=== PATIENT | female | born 1970 | race African-American/Black ===

== ENCOUNTER 2024-02-28 15:53 | Outpatient (CLI) | payer OTHER, SELFPAY ==
--- NOTE | ~2024-02-28 | MM_ITS ---
EXAMINATION: MM screening ofelia BI w vincent HISTORY: Screening TECHNIQUE: Craniocaudal and mediolateral oblique 3-D tomosynthesis images were obtained and synthetic 2-D images were generated. CAD analysis was submitted and interpreted. COMPARISON: No prior mammogram is available for comparison at this institution. BREAST PARENCHYMAL COMPOSITION: Not Dense. The breasts are almost entirely fatty. FINDINGS: There is no evidence of suspicious mass, calcification, or architectural distortion to sugg est malignancy in either breast. There has been no suspicious interval change. IMPRESSION: 1. No mammographic evidence of malignancy. 2. Recommend routine screening mammography in one year. BI-RADS Category 1: Negative Reviewed, dictated and finalized at location B.
== END 2024-02-28 15:54 | disposition home or self-care (01) ==
PROVIDERS: PCP Physician Assistant; Visit Provider Physician Assistant
DX: Z12.31 Encounter for screening mammogram for malignant neoplasm of breast (principal)
CPT/HCPCS: 77063; 77067

== ENCOUNTER 2024-08-15 22:32 | Emergency (ER) | payer BC, SELFPAY ==
--- NOTE | ~2024-08-15 | XR_ITS ---
EXAMINATION: XR chest 1V portable 08/15/2024 23:00 INDICATION: Heart palpitations PROCEDURE: AP portable chest COMPARISON: No prior studies for comparison. FINDINGS: The lungs are clear. The cardiomediastinal silhouette is within normal limits. There are no pleural effusions. There is no pneumothorax suspected. IMPRESSION: 1: NO ACUTE CARDIOPULMONARY DISEASE. Reviewed, dictated and finalized at location A. FF EXPERT
[2024-08-15 22:33] VITALS: BP 192/111; PULSE 117; RESP 20; TEMP 36.8; O2SAT 100
--- NOTE | 2024-08-15 22:38 | ECG_ITS ---
Test Date: 2024-08-15 22:42:58 Measurements Intervals [place] Rate: 102 P: 47 TX: 167 QRS: -26 QRSD: 95 T: 4 QT: 347 QTc: 453 Interpretive Statements SINUS TACHYCARDIA POSSIBLE LEFT ATRIAL ENLARGEMENT [-0.1mV P WAVE IN V1/V2] POSSIBLE LEFT VENTRICULAR HYPERTROPHY [VOLTAGE CRITERIA PLUS LAE OR QRS WIDENING] POSSIBLE ANTERIOR MYOCARDIAL INFARCTION , PROBABLY OLD [30 ms Q WAVE IN V3/V4, OR R < 0.2 mV IN V4] No previous ECG available for comparison Electronically Signed On 08-16-2024 09:21:13 SOIL SCIENCE PROFESSOR by Farhat Valera M.D.
[2024-08-15 23:13] VITALS: BP 182/100; PULSE 96; RESP 16; O2SAT 100
[2024-08-15 23:22] LABS: Basophils Percent Auto 0.6 % (0.2-1.2); Eosinophils Absolute Auto 0.2 K/mm3 (0-0.3); Eosinophils Percent Auto 2.5 % (0-4.4); Hematocrit 42.6 % (37.0-47.0); Hemoglobin 14.2 g/dL (12.0-15.0); Immature Granulocyte Absolute 0.02 K/mm3 (0.00-0.031); Immature Granulocyte Percent A 0.3 % (0-0.5); Lymphocytes Percent Auto 36.7 % (18.3-44.2); Mean Corpuscular HGB Conc 33.3 g/dl (32-36); Mean Corpuscular Hemoglobin 28.8 pg (26-34); Mean Corpuscular Volume 86.4 fl (80-100); Mean Platelet Volume 9.7 fl (7.4-10.4); Monocytes Absolute Auto 0.6 K/mm3 (0.1-0.6); Monocytes Percent Auto 8.1 % (2.6-8.5); Neutrophils Absolute Auto 3.5 K/mm3 (1.3-6.7); Neutrophils Percent Auto 51.8 % (45.5-73.1); Platelet Count Result 255 k/mm3 (150-375); Red Blood Count 4.93 M/mm3 (4.2-5.4); Red Cell Distribution Width 13.1 % (11.5-14.5); White Blood Count 6.8 K/mm3 (4.5-10.0)
[2024-08-15 23:39] LABS: Prothrombin Time 13.5 Seconds (11.1-14.7)
[2024-08-15 23:40] LABS: Partial Thromboplastin Time 29.7 Seconds (22.3-36.8)
[2024-08-16] LABS: Alanine Aminotransferase 21 U/L (6-35); Albumin Level 3.7 g/dL (3.5-5.1); Alkaline Phosphatase 59 U/L (38-126); Anion Gap 6 mmol/L (4-12); Aspartate Amino Transferase 19 U/L (14-36); Bilirubin,Total 0.6 mg/dL (0.2-1.3); Blood Urea Nitrogen 7 mg/dL (7-17); Calcium 8.6 mg/dL (8.4-10.2); Carbon Dioxide 25 mmol/L (22-30); Chloride 104 mmol/L (98-107); Estimated CRCL calculation 130 ml/min; Estimated Glomerular Filt Rate > 60; Glucose 271 mg/dL (65-110); Lipase 59 U/L (23-300); Potassium 3.7 mmol/L (3.4-5.0); Sodium 135 mmol/L (137-145)
[2024-08-16 00:05] VITALS: BP 152/97; PULSE 91; RESP 18; O2SAT 100
[2024-08-16 00:11] LABS: Troponin I < 0.012 ng/mL (0.000-0.034)
[2024-08-16 02:22] VITALS: BP 164/96; PULSE 96; RESP 20; O2SAT 98
[2024-08-16 02:36] LABS: Troponin I < 0.012 ng/mL (0.000-0.034)
--- NOTE | 2024-08-16 02:53 | ED.GENADULT ---
HPI - General Adult General Chief complaint: Arrhythmia/Palpitations Stated complaint: palpitations Time Seen by Provider: 08/15/24 22:54 History of Present Illness HPI narrative: This is a 54-year-old female presenting ED with chief complaint of palpitations. Patient says that she is laying down when also start heart started racing. Palpitations lasted for about 10 minutes before resolving without intervention. She then came to the hospital for evaluation. At this time she is asymptomatic and is denying chest pain difficulty breathing abdominal pain nausea vomiting diarrhea. She has had some URI symptoms over the last several days. Related Data Allergies Allergy/AdvReac Type Severity Reaction Status Date / Time No Known Allergies Allergy Verified 08/15/24 23:12 Exam Narrative: APPEARANCE: No apparent distress. Head: atraumatic. EYES: EOMI, NOSE: Atraumatic NECK: Trachea midline RESPIRATORY: No increased rate of breathing CTAB CARDIOVASCULAR: RRR, no peripheral edema ABDOMINAL: Non-distended soft nontender MUSCULOSKELETAl: No obvious deformities NEURO: Alert. Moving 4/4 extremities SKIN:: Warm, dry. Normal color PSYCHIATRIC: Normal affect Course Vital Signs Vital signs: Vital Signs Temperature 98.2 F 08/15/24 22:33 Pulse Rate 117 H 08/15/24 22:33 Respiratory Rate 20 08/15/24 22:33 Blood Pressure 192/111 H 08/15/24 22:33 Pulse Oximetry 100 08/15/24 22:33 Oxygen Delivery Room Air 08/15/24 22:33 Temperature 98.2 F 08/15/24 22:33 Pulse Rate 96 08/16/24 02:22 Respiratory Rate 20 08/16/24 02:22 Blood Pressure 164/96 H 08/16/24 02:22 Pulse Oximetry 98 08/16/24 02:22 Oxygen Delivery Room Air 08/15/24 22:33 Medical Decision Making [facility] [place] Narrative Medical decision making narrative: -Course: 54-year-old female presenting after a 10 minutes episode palpitations. Workup here was unremarkable. Patient has been asymptomatic and is resting. EKG without concerning findings. She was monitored quality facilitator several hours with no recurrence of her symptoms. She will be discharged to follow-up with primary care physician. -DDX includes but is not limited to: Heart block, AFib, SVT, anxiety, dehydration -Independent interpretation of studies: Labs reviewed Independent EKG interpretation: Rhythm [sinus], Rate [102], [place] -[normal], [place] -[normal], QRS [narrow], QTC [normal], T waves -[negative for concerning inversions], ST Segments - [Negative for concerning elevations] Final interpretations: Sinus tach -Shared decision making / Disposition:discharged. Vital Signs Vital Signs: Vital Signs Temperature 98.2 F 08/15/24 22:33 Pulse Rate 117 H 08/15/24 22:33 Respiratory Rate 20 08/15/24 22:33 Blood Pressure 192/111 H 08/15/24 22:33 Pulse Oximetry 100 08/15/24 22:33 Oxygen Delivery Room Air 08/15/24 22:33 Temperature 98.2 F 08/15/24 22:33 Pulse Rate 96 08/16/24 02:22 Respiratory Rate 20 08/16/24 02:22 Blood Pressure 164/96 H 08/16/24 02:22 Pulse Oximetry 98 08/16/24 02:22 Oxygen Delivery Room Air 08/15/24 22:33 Lab Data 08/15/24 23:15 08/15/24 23:36 Labs: Lab Results 08/15/24 08/15/24 08/16/24 Range/Units 23:15 23:36 02:09 WBC 6.8 (4.5-10.0) K/mm3 RBC 4.93 (4.2-5.4) M/mm3 Hgb 14.2 (12.0-15.0) g/dL Hct 42.6 (37.0-47.0) % MCV 86.4 (80-100) fl MCH 28.8 (26-34) pg MCHC 33.3 (32-36) g/dl RDW 13.1 (11.5-14.5) % Plt Count 255 (150-375) k/mm3 MPV 9.7 (7.4-10.4) fl Immature Gran % (Auto) 0.3 (0-0.5) % Neut % (Auto) 51.8 (45.5-73.1) % Lymph % (Auto) 36.7 (18.3-44.2) % [place] % (Auto) 8.1 (2.6-8.5) % Eos % (Auto) 2.5 (0-4.4) % Baso % (Auto) 0.6 (0.2-1.2) % Lymph # (Auto) 2.50 (0.9-3.2) K/mm3 [place] # (Auto) 0.6 (0.1-0.6) K/mm3 Eos # (Auto) 0.2 (0-0.3) K/mm3 Baso # (Auto) 0.0 (0.0-0.1) K/mm3 Abs Immat Gran (auto) 0.02 (0.00-0.031) K/mm3 Absolute Neuts (auto) 3.5 (1.3-6.7) K/mm3 Absolute Nucleated RBC 0.000 (0.0-0.012) K/mm3 Nucleated RBC % 0.0 (0.0-0.2) % PT 13.5 (11.1-14.7) Seconds INR 1.0 APTT 29.7 (22.3-36.8) Seconds Sodium 135 L (137-145) mmol/L Potassium 3.7 (3.4-5.0) mmol/L Chloride 104 (98-107) mmol/L Carbon Dioxide 25 (22-30) mmol/L Anion Gap 6 (4-12) mmol/L BUN 7 (7-17) mg/dL Creatinine 0.54 L (0.7-1.0) mg/dL Estim Creat Clear Calc 130 ml/min Estimated GFR > 60 (59 - ) Glucose 271 H (65-110) mg/dL Calcium 8.6 (8.4-10.2) mg/dL Total Bilirubin 0.6 (0.2-1.3) mg/dL AST 19 (14-36) U/L ALT 21 (6-35) U/L Alkaline Phosphatase 59 (38-126) U/L Troponin I < 0.012 < 0.012 (0.000-0.034) ng/mL Total Protein 7.0 (6.3-8.2) g/dL Albumin 3.7 (3.5-5.1) g/dL Lipase 59 (23-300) U/L Discharge Plan Discharge Clinical Impression: Palpitations Patient Disposition: Home, Self-Care Condition: Stable Instructions: Antibiotic Form, Heart Palpitations (DC) Additional Instructions: He was seen emergency room for palpitations. Workup here was reassuring. Your symptoms did not recur while in the ED. please follow-up with your primary care physician for further management. Return to ED if you develop any new or worsening symptoms. Patient Language: Croatian Prescriptions: New amlodipine 5 mg tablet 5 mg PO DAILY Qty: 30 0RF Follow-up/Referrals: Jaycee,OTF Ma [Primary Care Provider] -
== END 2024-08-16 03:20 | disposition home or self-care (01) ==
PROVIDERS: Emergency Provider Emergency Medicine; PCP Physician Assistant
DX: R00.2 Palpitations (principal); R00.0 Tachycardia, unspecified; R94.31 Abnormal electrocardiogram [ECG] [EKG]
CPT/HCPCS: 36415; 71045; 80053; 83690; 84484; 85025; 85610; 85730; 93005; 99284

== ENCOUNTER 2025-01-01 18:52 | Emergency (ER) | payer BC, SELFPAY ==
--- OUTSIDE RECORDS SUMMARY | 2025-01-01 18:54 | XMS_ITS | Data Portability ---
Author Organization [place] - [facility] OFFICE Address [address] [place] [address] Care Team Providers Care Failure Analysis Technician Name Role Phone GARLAND FIGUEROA Primary Care Provider [phone] GARLAND FIGUEROA Referring Provider Assessment Encounter Date Assessment Date Assessment LastModified by Organization Details LastModified Time 03/29/2018 03/29/2018 Discussed with patient findings, diagnosis, and prognosis. Discussed evaluation and treatment options including risks and benefits with patient, and patient expressed understanding. The following interventions were recommended: heart healthy low-fat, low-sodium diet, avoid strenuous exercise pending completion of cardiovascular evaluation, maintain appropriate weight, continue current medications, and medical follow-up as noted. [email or web address] Not available 03/29/2018 15:37:45 Plan of Treatment Reminders Order Date Submit Date Provider Last Modified By Organization Details Last Modified Time Details Appointments None recorded. Lab None recorded. Referral None recorded. Procedures None recorded. Surgeries None recorded. Imaging electrocard iogram 2017 018 [email or web address] Not available 9 17:15:45 Medication Orders None recorded. Patient TargetsNo targets recorded. Patient Instructions Encounter Date Encounter Id Patient Instructions Last Modified By Organization Details Last Modified Time 03/29/2018 [id number] When You Want to Lose Weight: Care Instructions [email or web address] Not available 03/29/2018 15:39:20 palpitations: care instructions [email or web address] Not available 03/29/2018 15:39:20 high blood pressure: care instructions [email or web address] Not available 03/29/2018 15:39:20 learning about high blood pressure [email or web address] Not available 03/29/2018 15:39:20 This document wa s scribed by Riddhi [email or web address] Not available 03/29/2018 15:17:41 Reason for Referral None Reported. Results Created Date Observation Date Name Description Value Unit Range Abnormal Flag Note LastModifiedBy Organization Detail LastModifiedTime 03/29/20 18 03/29/2018 elect rocar diogr am Result low voltag e, chest leads. Jacob septal CO, age undete rmined Not Available Russ Chan MD [address], [place], [address], 03/29/2018 14:43:58 03/29/20 18 03/29/2018 elect rocar diogr am No observ ation record ed. [email or web address] Not Available 2017 17:33:34 05/21/20 18 05/17/2018 , [facility]io gram No observ ation record ed. esto [facility] [address], [place], [address], 05/28/2018 14:43:53 Result Notes None recorded. Problems Name Problem SNOMED Code Status Onset Date Resolution Date Notes Provider Name and Address Organization Details Recorded Time Hypertensiv e disorder 53106755 Completed 201703/29/2018 Riddhi Alarcon [facility] [place], [place] - [facility] 8 15:16:31 Dyspnea on exertion 19722176 Active 2017 Isabel Dubois [facility] [place], [place] - [facility] 8 14:40:01 Palpitation s 10725893 Active 2017 Isabel Dubois [facility] [place], [place] - [facility] 8 14:40:07 Essential hypertensio n 50751903 Active 2017 Riddhi Alarcon [place], [place] - [facility] 8 15:16:27 Gastroesoph ageal reflux disease 500345105 Active 2017 Riddhi Alarcon [place], [place] - [facility] 8 15:17:49 Obesity 232548024 Active 2017 Kenrick Galeas [facility] [place], [place] - [facility] 8 15:32:04 Problem Notes None recorded. Medical Equipment None Reported. Allergies No known drug allergies Medications Name Sig Start Date Stop Date Status Note LastModified by Organization Details LastModified Time amlodipine 5 mg tablet 1 TAB QD active Not Available Not Available No t Available aspirin 81 mg tablet,delaye d release 1 tab qd active Not Available Not Available No t Available bisoprolol fumarate 5 mg tablet 1 TAB QD active Not Available Not Available No t Available ranitidine 150 mg tablet 1 tab qd active Not Available Not Available No t Available lisinopril 10 mg tablet 1 TAB QD active Not Available Not Available No t Available iron 1 tab qd active Not Available Not Available No t Available Vitals Date Recorded Body weight Body mass index (BMI) Body height Heart rate Oxygen saturation Oxygen saturation in Arterial blood by Pulse oximetry Systolic blood pressure Diastolic blood pressure Provider Name and Address Organization Details Last Updated DateTime 8 944199. 32 g 42.4 kg/m2 162.56 cm 57 /min 99 % 99 % 128 mm[Hg] 86 mm[Hg] Isabel Dubois [facility] 8 14:50:48 Social History Question Answer Notes LastModified by [employer] Details LastModified Time Tobacco Smoking Status Never Smoker Not Available [facility] 06/03/2020 03:30:42 What Is Your Level Of Caffeine Consumption? Occasional [id number] Information not available 06/03/2020 How Much Tobacco Do You Chew? None [id number] Information not available 06/03/2020 What Type Of Diet Are You Following? REGULAR [id number] Information not available 06/03/2020 Which Illicit Or Recreational Drugs Have You Used? No [id number] Information not available 06/03/2020 Live Alone Or With Others? With Others [email or web address] Information not available 03/29/2018 Marital Status Informatio n not available 03/29/2018 What Was The Date Of Your Most Recent Tobacco Screening? 03/29/2018 [id number] Information not available 06/03/2020 How Many Children Do You Have? 3 [id number] Information not available 06/03/2020 How Much Tobacco Do You Smoke? No [id number] Information not available 06/03/2020 General Stress Level Medium [email or web address] Information not available 03/29/2018 Sex: Unknown Functional Status Question Answer Note LastModified by [employer] Details LastModified Time What is your level of alcohol consumption? 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 Occasional [id number] Information not available 06/03/2020 Mental Status None recorded. Family History Relationship Description Onset Age of this Age Resolved Age Notes LastModified by Organization Details LastModified Time Father Diabetes mellitus [email or web address] Not available 2017 14:42:01 Mother Hypertensive disorder [email or web address] Not available 2017 14:42:08 Medical History Condition Response Hypertension Y Gynecological HistoryNo gynecological history recorded. Obstetrics History GPAL:G 0 P 0 0 0 0 Past Encounters Encounter ID Performer Location Encounter Start Date Encounter Closed Date Diagnosis/Indication Diagnosis SNOMED-CT Code Diagnosis ICD10 Code Diagnosis Note [id number] Kenrick Galeas MD [facility] OFFICE [address] [place] [address] 03/29/2018 14:15:07 08/07/2018 17:15:44 Dyspnea on exertion 30010204 R06.09 Has exertional dyspnea which can be an anginal equivalent . Has abnormal EKG 03/29/18: NSR, possible anterior myocardial infarction age-indete rminate. Obtain echo to evaluate for structural /functiona l disease. Treadmill Myoview Stress test, has high [place] Risk score. Has Known CAD, or CAD risk equivalent . To look for any ischemia. Will obtain FLP before next visit. Palpitations 70200761 R0 0.2 Fluttering palpitatio ns, once per month before menstrual cycle. Will order CMP, Mg, TSH before next visit. Essential hypertension 14360885 I10 Patient's blood pressure is somewhat well-contr olled on present medical therapy. Patient is tolerating , without difficulty , the current medication s. I have not made changes to the current regimen. Patient is advised to maintain a blood pressure diary. Patient was advised to eat a low-sodium diet (2 grams sodium or less daily). BP monitor - XL. Obesity 629878513 E66.9 20 lb. weight loss recommende d over the next 2 months. Health Concerns Section Related Observation LastModified by Organization Detai ls LastModified Time None Recorded Concern Status LastModified by Organization Details LastModified Time None Recorded Advance Directives Directive None Recorded Payers Insurance Date Sequence Insurance Name Policy Number Policy Casanova Covered Member ID Casanova Member ID Guarantor Name 06/03/2018 1 [facility] [id number] Adele Guevara [id number] Adele Guevara Notes Date Note Type Note Provider Name and Address Organization Details Recorded Time 03/29/2018 text/html 03/29/18 CC: Hypertension 48 year-old woman with history of hypertension, GERD, obesity, presents for cardiac consultation with a chief complaint of hypertension. She was diagnosed with HTN while 19 years ago and has been on medications since then. She does not check her BP at home. She does not have a BP cuff. She reports rare fluttering of her chest before she starts her menstrual period occuring oncer per month, episodes last a few seconds and resolve on its own. Denies any chest pain, shortness of breath or lightheadedness associated. She has a family history of DM and HTN with her parents. Denies history of CO in the family. She is currently still having her menstrual cycle. No known history of coronary artery disease. No history of previous myocardial infarction. No history of heart failure. No known valvular heart disease. No known arrhythmia. Patient reports feeling well overall. Patient is active, but is not exercising regularly. At her job, she walks a lot and on her off days she tries to go up and down her stairs a few times or other exercises. No chest pain. No arm pain. No neck pain. No nausea and vomiting. No diaphoresis. No shortness of breath at rest. Dyspnea on exertion reported while going up stairs.# No dyspnea on exertion. Dyspnea on exertion reported. No fatigue.No orthopnea. No PND. No leg swelling. Palpitation reported rare fluttering.# No palpitation. Palpitat ion reported. No dizziness. No syncope . No pre-syncope. No claudication. No major bleeding events. No side effects from medications. Complete ROS negative except as stated in the HPI and ROS. She snores. Denies morning headaches or daytime somnolence. Results from this visit, or from the past: GUILLERMO [facility] - [facility] 03/29/2018 15:39:42 OBGyn Episode No OBEpisode recorded.
[2025-01-01 19:00] VITALS: BP 179/88; PULSE 100; RESP 18; TEMP 36.6; O2SAT 100
--- NOTE | 2025-01-01 20:00 | PC.NURSE ---
Pt ambulates to bathroom to provide urine sample and is unsuccessful. Will try again in approx 15 minutes.
--- NOTE | 2025-01-01 20:10 | ED_ITS ---
HPI - Female Genitourinary General Chief complaint: Vaginal Bleeding Stated complaint: vaginal bleeding and abd cramps Time Seen by Provider: 01/01/25 19:29 Source: patient Mode of arrival: ambulatory Limitations: no limitations History of Present Illness HPI Narrative: Patient presents with vaginal bleeding/spotting she noticed on the toilet paper while wiping 4 days ago. Associated with low abdominal pain/cramps. Has not taken any medications, describes it like a period cramp. History of heavy periods but LMP was 3 years ago. Noticed blood in urine but thought they were related, not strictly hematuria originally. No urgency/frequency/dysuria. Denies hiastory of UTI or pyelo. History of kidney stone when 20+ years ago. Not on anticoagulation. Has an appointment to see an obGyn 01/21/25. Has a PCP. No fevers/chills, weight loss. No hair distribution changes. No vision changes (no blurred/double vision). Does feel hot constantly. No lower extremity edema. No other mucoscal bleeding. No trauma/foreign body insertion. Sexually active with 1 male partner. No history of STIs. No recent instrumentation. Related Data Allergies Allergy/AdvReac Type Severity Reaction Status Date / Time No Known Allergies Allergy Verified 01/01/25 19:02 [facility] Past Medical History Medical History (Updated 01/07/25 @ 04:56 by Alley Dsouza MD) H/O calculus of kidney during approx 1999 Post-menopausal History of heavy periods Exam 2 Narrative: GENERAL: Well-appearing, well-nourished, and in no acute distress. HEAD: Normocephalic, atraumatic. EYES: Non injected, non icteric ENT: Nares clear, no rhinorrhea or epistaxis. Gross auditory acuity intact. NECK: Supple. No meningismus. CHEST: Speaking in full sentences. No respiratory distress. HEART: Regular rate and rhythm. . ABDOMEN: Soft, nondistended. No rigidity or guarding. Not peritoneal EXTREMITIES: Normal range of motion. No lower extremity edema. SKIN: Warm, dry, no rash. NEURO: No focal deficits. Alert and oriented. Answering questions. Following commands. Normal speech without aphasia or dysarthria. PSYCH: Normal mood and affect. : Pelvic exam performed with nurse Saini present as top printing press operator/hardware sales assistant. Normal external female genitalia. No lesions/rashes or masses appreciated. Normal vaginal canal. Scant leos discharge in posterior fornix/overlying cervix. No luba blood. Course Vital Signs Vital signs: Vital Signs Temperature 97.9 F 01/01/25 19:00 Pulse Rate 100 01/01/25 19:00 Respiratory Rate 18 01/01/25 19:00 Blood Pressure 179/88 H 01/01/25 19:00 Pulse Oximetry 100 01/01/25 19:00 Oxygen Delivery Room Air 01/01/25 19:00 Temperature 97.9 F 01/01/25 19:00 Pulse Rate 90 01/01/25 23:30 Respiratory Rate 15 01/01/25 23:30 Blood Pressure 152/84 H 01/01/25 23:30 Pulse Oximetry 100 01/01/25 23:30 Oxygen Delivery Room Air 01/01/25 19:00 MDM - Female Genitourinary MDM Narrative Medical decision making narrative: This is a 54 year old post-menopausal female who presents with vaginal bleeding most likely of non emergent etiology. In the ED she is afebrile with VS notable for hypertension. The patient had a benign pelvic exam, patient's bleeding thought to be secondary to fibroids or other non emergent cause of abnormal uterine bleeding. Unlikely hemorrhagic cystitis: No dysuria, UA doesn't appear infected Unlikely PCOS, pituitary dysregulation, hypothyroidism: No changes in hair distribution, weight change, no visual changes, questionable thermoregulatory changes, no new unexplained edema. Normal TSH Unlikely coagulopathy (vWD, ITP): No anticoagulation medication, platelets normal, no other mucosal bleeding. Unlikely traumatic vaginal bleeding: no history of instrumentation, hard sex, or abuse, and pelvic exam shows no signs of trauma, no foreign body visualized. Unlikely PID: monogamous with sexual partner also believed to be monogamous, no history of STDs, no pain on pelvic exam. STI testing negative. Unlikely other infectious etiology: nonseptic appearance, no recent history of instrumentation. Otherwise well appearing without appreciable blood in vaginal vault. Reasonable to defer CT imaging at this time. She has mild hyperglycemia without anion gap acidosis. Mild hypokalemia. Oral repletion ordered. Notably, patient is not anemic. Plan discharge home with return precautions, advised to follow up with ObGyn who may recommend US in the outpatient setting. Discharged in stable condition with Rx for APAP. Lab Data Attestation: I reviewed the patient's lab results. 01/01/25 21:09 01/01/25 21:09 Labs: Lab Results 01/01/25 Range/Units 21:09 WBC 8.5 (4.5-10.0) K/mm3 RBC 5.06 (4.2-5.4) M/mm3 Hgb 14.5 (12.0-15.0) g/dL Hct 43.9 (37.0-47.0) % MCV 86.8 (80-100) fl MCH 28.7 (26-34) pg MCHC 33.0 (32-36) g/dl RDW 13.3 (11.5-14.5) % Plt Count 282 (150-375) k/mm3 MPV 9.6 (7.4-10.4) fl Immature Gran % (Auto) 0.5 (0-0.5) % Neut % (Auto) 59.0 (45.5-73.1) % Lymph % (Auto) 30.4 (18.3-44.2) % Curry % (Auto) 8.1 (2.6-8.5) % Eos % (Auto) 1.5 (0-4.4) % Baso % (Auto) 0.5 (0.2-1.2) % Lymph # (Auto) 2.58 (0.9-3.2) K/mm3 Curry # (Auto) 0.7 H (0.1-0.6) K/mm3 Eos # (Auto) 0.1 (0-0.3) K/mm3 Baso # (Auto) 0.0 (0.0-0.1) K/mm3 Abs Immat Gran (auto) 0.04 H (0.00-0.031) K/mm3 Absolute Neuts (auto) 5.0 (1.3-6.7) K/mm3 Absolute Nucleated RBC 0.000 (0.0-0.012) K/mm3 Nucleated RBC % 0.0 (0.0-0.2) % PT 14.0 (11.1-14.7) Seconds INR 1.1 APTT 28.0 (22.3-36.8) Seconds Sodium 137 (137-145) mmol/L Potassium 3.3 L (3.4-5.0) mmol/L Chloride 104 (98-107) mmol/L Carbon Dioxide 24 (22-30) mmol/L Anion Gap 9 (4-12) mmol/L BUN 12 D (7-17) mg/dL Creatinine 0.69 L (0.7-1.0) mg/dL Estim Creat Clear Calc 104 ml/min Estimated GFR > 60 (59 - ) Glucose 150 H (65-110) mg/dL Calcium 9.4 (8.4-10.2) mg/dL Total Bilirubin 0.9 (0.2-1.3) mg/dL AST 32 (14-36) U/L ALT 33 (6-35) U/L Alkaline Phosphatase 58 (38-126) U/L Total Protein 8.1 (6.3-8.2) g/dL Albumin 4.4 (3.5-5.1) g/dL TSH 1.480 (0.465-4.680) uIU/mL Urine Color Yellow (Yellow) Urine Appearance Clear (Clear) Urine pH 5.0 (5.0-9.0) Ur Specific [place] 1.014 (1.001-1.035) Urine Protein Negative (Negative) mg/dL Urine Glucose (UA) Negative (Negative) mg/dL Urine Ketones Negative (Negative) mg/dL Ur Blood (Man) Negative (Negative) Urine Nitrate Negative (Negative) Urine Bilirubin Negative (Negative) Urine Urobilinogen 0.2 (<2.0) mg/dL Leukocyte Esterase Rfl Negative (Negative) CHEPE/UL C. trachomatis (PCR) Not detected (NOT DETECTE) N. gonorrhoeae (PCR) Not detected (NOT DETECTE) T. vaginalis (PCR) Not detected (NOT DETECTE) Discharge Plan Discharge Clinical Impression: Hyperglycemia, Hypokalemia, Blood on toilet paper Patient Disposition: Home Condition: Stable Instructions: Antibiotic Form, Abnormal (Dysfunctional) Uterine Bleeding (ED) Additional Instructions: Keep your upcoming appointment with the ObGyn. Return to the emergency department with any new, worsening, or unmanaged symptoms. For example, if you are bleeding and saturating 2 maxi pads an hour for 2-3 hours, intractable pain, fever greater than 100.4F. Acetaminophen/Tylenol is safe to take for pain/cramping (maximum 4000mg/day). Patient Language: Yi Prescriptions: New acetaminophen 500 mg capsule 1,000 mg PO Q6H PRN (Reason: pain) Qty: 30 0RF No Action amlodipine 5 mg tablet 5 mg PO DAILY Qty: 30 0RF Follow-up/Referrals: Jaycee,OTF Ma [Primary Care Provider] - Stand Alone Forms: Work/School Release IP Time of Disposition: 23:28
[2025-01-01 21:17] LABS: Basophils Percent Auto 0.5 % (0.2-1.2); Eosinophils Absolute Auto 0.1 K/mm3 (0-0.3); Eosinophils Percent Auto 1.5 % (0-4.4); Hematocrit 43.9 % (37.0-47.0); Hemoglobin 14.5 g/dL (12.0-15.0); Immature Granulocyte Absolute 0.04 K/mm3 (0.00-0.031); Immature Granulocyte Percent A 0.5 % (0-0.5); Lymphocytes Absolute Auto 2.58 K/mm3 (0.9-3.2); Lymphocytes Percent Auto 30.4 % (18.3-44.2); Mean Corpuscular Hemoglobin 28.7 pg (26-34); Mean Corpuscular Volume 86.8 fl (80-100); Mean Platelet Volume 9.6 fl (7.4-10.4); Monocytes Absolute Auto 0.7 K/mm3 (0.1-0.6); Monocytes Percent Auto 8.1 % (2.6-8.5); Platelet Count Result 282 k/mm3 (150-375); Red Blood Count 5.06 M/mm3 (4.2-5.4); Red Cell Distribution Width 13.3 % (11.5-14.5); White Blood Count 8.5 K/mm3 (4.5-10.0)
[2025-01-01 21:21] LABS: Add Urine Microscopic? NO; Appearance Urine Clear (Clear); Bilirubin Urine Negative (Negative); Blood Urine Negative (Negative); Color Urine Yellow (Yellow); Glucose Urine UA Negative (Negative); Ketones Urine Negative (Negative); Leukocyte Esterase Ur Negative LEU/UL (Negative); Nitrate Urine Negative (Negative); Protein Urine Negative (Negative); Specific Grav Ur 1.014 (1.001-1.035); Urobilinogen Urine 0.2 mg/dL (<2.0)
[2025-01-01 21:27] LABS: INR 1.1
[2025-01-01 21:29] LABS: Alanine Aminotransferase 33 U/L (6-35); Albumin Level 4.4 g/dL (3.5-5.1); Alkaline Phosphatase 58 U/L (38-126); Anion Gap 9 mmol/L (4-12); Aspartate Amino Transferase 32 U/L (14-36); Bilirubin,Total 0.9 mg/dL (0.2-1.3); Blood Urea Nitrogen 12 mg/dL (7-17); Calcium 9.4 mg/dL (8.4-10.2); Carbon Dioxide 24 mmol/L (22-30); Chloride 104 mmol/L (98-107); Estimated CRCL calculation 104 ml/min; Estimated Glomerular Filt Rate > 60; Glucose 150 mg/dL (65-110); Potassium 3.3 mmol/L (3.4-5.0); Sodium 137 mmol/L (137-145); Total Protein 8.1 g/dL (6.3-8.2)
[2025-01-01 22:31] LABS: Trichomonas Vag PCR NOT DETECTED (NOT DETECTE)
[2025-01-01] MEDS: POTASSIUM BICARBONATE 25 MEQ TABEF PO (22:45)
[2025-01-01] MEDS: IBUPROFEN 600 MG TABLET PO (22:45)
[2025-01-01 22:54] LABS: Chlamydia trachomatis NOT DETECTED (NOT DETECTE); Neisseria gonorrhoeae PCR NOT DETECTED (NOT DETECTE)
[2025-01-01 23:30] VITALS: BP 152/84; PULSE 90; RESP 15; O2SAT 100
== END 2025-01-01 23:35 | disposition home or self-care (01) ==
PROVIDERS: Emergency Provider Student in an Organized Health Care Education/Training Program; PCP Physician Assistant
DX: R73.9 Hyperglycemia, unspecified (principal); E87.6 Hypokalemia; N93.9 Abnormal uterine and vaginal bleeding, unspecified
CPT/HCPCS: 36415; 80053; 81003; 84443; 85025; 85610; 85730; 87491; 87591; 87661; 99284; A9270